=== PATIENT | female | born 1970 | race Caucasian/White ===

== ENCOUNTER 2016-10-22 11:41 | Observation (INO) | payer OTHER ==
[~2016-10-22] VITALS: Ht 162.6 cm; Wt 62.8 kg
[~2016-10-22 11:41] MED LIST: ADVIL PM1 TABLET PO; AMOXICILLIN500 MG PO; ASPIRIN81 M2 PO; CALCIUM 500 MG1 EACH PO; CLA 1,000 MG1000 MG PO; DECADRON4 MG PO; DEXAMETHASONE2 MG PO; DEXAMETHASONE4 MG PO; DEXAMETHASONE6 MG PO; FLAGYL500 MG PO; FLONASE SENSIM9.9 ML BOTH NARES; HEALTHY HEART1 EAC1 PO; HERCEPTIN; HERCEPTIN10 MG/0.47 IV; KEPPRA500 MG PO; KLOR-CON SPRIN10 MEQ PO; LEVETIRACETAM500 MG PO; LOMOTIL TABLET1 EACH PO; MOTRIN IB200 MG PO; MULTIVITAMIN1 EAC2 PO; NEURONTIN100 MG PO; ONE DAILY WOME1 EACH PO; OXYCONTIN20 MG PO; PEPCID20 MG PO; PERJETA420 MG/14 IV; POTASSIUM CHLO10 ME4 PO; PRENATAL1 EACH PO; SILVADENE20 GM TP; STROVITE1 EACH PO; TURMERIC500 MG PO; TYLENOL EXTRA500 MG PO; VITAMIN B-6200 MG PO; VITAMIN B-625 MG PO; VITAMIN D-32000 UNI2 PO; VOLTAREN-XR100 MG PO; VOLTAREN50 MG PO; XELODA500 MG PO; ZANTAC150 MG PO
[2016-10-22 15:41] VITALS: BP 114/76
[2016-10-22 21:01] VITALS: BP 129/78
[2016-10-22 23:59] VITALS: BP 117/67
[2016-10-23 04:15] VITALS: BP 120/79
[2016-10-23 04:28] VITALS: BP 115/82
[2016-10-23] MEDS ORDERED: OXYCONTIN20 MG PO (07:43)
[2016-10-23] MEDS ORDERED: OXYCODONE-APAP1 EACH PO (07:43)
[2016-10-23] MEDS ORDERED: TIZANIDINE HCL4 MG PO (07:43)
[2016-10-23 07:47] VITALS: BP 99/67
[2016-10-23 11:41] VITALS: BP 114/71
[2016-10-23] MEDS ORDERED: VALIUM5 MG PO (14:08)
== END 2016-10-23 15:12 | disposition home or self-care (01) ==
LOC: SDC 11:41 → EDSTATUS 14:36 → 2SOUTH 14:41 → 3EAST 15:12 → 2SOUTH 15:12 → 3EAST 20:32
DX: G83.4 Cauda equina syndrome (principal); C79.31 Secondary malignant neoplasm of brain; C79.49 Secondary malignant neoplasm of other parts of nervous system; C79.51 Secondary malignant neoplasm of bone; R15.9 Full incontinence of feces; M54.5 Low back pain; Z85.3 Personal history of malignant neoplasm of breast
CPT/HCPCS: 72020; 76000; 86900; 86901; 88305; 88341 TC; 88342 TC; 93005; G0378; J0690; J1100; J1170; J2250; J2405; J2710; J2930; J3010; J3370; J3480; J8540; S0020